=== PATIENT | male | born 1985 | race Two or more races ===

== ENCOUNTER 2025-09-07 20:30 | Emergency (ER) | payer SELFPAY ==
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
[2025-09-07 20:42] VITALS: BP 119/76; PULSE 105; RESP 18; TEMP 36.7; O2SAT 96
== END 2025-09-07 21:00 ==
PROVIDERS: Emergency Provider Emergency Medicine
DX: S01.81XA Laceration without foreign body of other part of head, initial encounter (principal); W45.8XXA Other foreign body or object entering through skin, initial encounter
CPT/HCPCS: 12011; 99281